=== PATIENT | female | born 1975 | race Caucasian/White ===

== ENCOUNTER → 2022-09-15 13:48 | Outpatient (CLI) | payer OTHER, SELFPAY ==
--- NOTE | ~2022-09-15 | MM_ITS ---
EXAMINATION: MM screening alberto BI w [facility] HISTORY: Screening mammogram TECHNIQUE: Craniocaudal and mediolateral oblique 3-D tomosynthesis images were obtained and synthetic 2-D images were generated. CAD analysis was submitted and interpreted. COMPARISON: 02/05/2018 diagnostic left mammogram and left complete breast ultrasound 02/01/2018, 06/27/2014 bilateral screening mammogram examinations BREAST PARENCHYMAL COMPOSITION: The breasts are heterogeneously dense, which may obscure small masses . FINDINGS: There is no evidence of suspicious mass, calcification, or architectural distortion to sugg est malignancy in either breast. There has been no suspicious interval change. IMPRESSION: 1. No mammographic evidence of malignancy. 2. Recommend routine screening mammography in one year. BI-RADS Category 1: Negative Reviewed, dictated and finalized at location A. ER TENDER
--- NOTE | ~2022-09-15 | US_ITS ---
EXAMINATION: US transvaginal DATE: 09/15/2022 14:42 INDICATION: Uterine hypertrophy Comparison:No prior studies for comparison. TECHNIQUE: Multiple transabdominal and endovaginal sonographic images of the pelvis performed. FINDINGS: The uterus measures 9.8 x 4.5 x 7 cm. There is duplication of the endometrium which may rep resent a bicornuate or septate uterus. The endometrium on the right measures 11 mm and on the left me asures 10 mm. There are small uterine fibroids inferiorly measuring 1.4 cm and anterior to the right measuring 2.1 cm. The right ovary is not visualized. The left ovary is unremarkable measuring 3.6 x 2 x 2.9 cm. There is no free fluid in the pelvis. There are no abnormal masses seen on either side. IMPRESSION: 1. 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 2: Small uterine fibroids, largest located anteriorly to the right measuring 2.1 cm. Reviewed, dictated and finalized at location B. ICAL ROLL OPERATOR IMPRESSION: 1. Duplication of the endometrium which may be secondary to bicornuate or septa te uterus. 2: Small uterine fibroids, largest located anteriorly to the right measuring 2. 1 cm.
== END ==
PROVIDERS: PCP Family Medicine; Visit Provider Nurse Practitioner
DX: Z12.31 Encounter for screening mammogram for malignant neoplasm of breast (principal); N85.2 Hypertrophy of uterus; R93.5 Abnormal findings on diagnostic imaging of other abdominal regions, including retroperitoneum; D25.9 Leiomyoma of uterus, unspecified
CPT/HCPCS: 76830; 77063; 77067

== ENCOUNTER 2023-11-02 01:50 | Day surgery (SDC) | payer OTHER, SELFPAY ==
[2023-10-22 11:02] VITALS: BMI 24.0
--- NOTE | 2023-10-22 11:05 | PC.NURSE ---
Report to the Outpatient Waiting Room, entrance under the green pavilion located off [facility], at time 0730 on date 11/02/23. Planned Procedure Time: 0930. Time changes happen often and if your time is changed the preop area will call you the afternoon before. - You and your visitor will be asked to self-screen and do not enter if you have any COVID symptoms. - A mask is optional within the hospital at this time. Patients may have clear liquids (water, carbonated beverages, clear teas, apple juice) until 3 hours prior to surgery with a maximum of 20 ounces. - No food from midnight until time of surgery Take the following medications with a SIP of water the morning of surgery: NONE DO NOT STOP ANY OF YOUR OTHER PRESCRIPTION MEDICATIONS PRIOR TO SURGERY ?EXCEPT THE FOLLOWING Medications to discontinue per physician: N/A Date to take last dose: N/A Please no make-up, nail uzbek, hairspray, perfume, deodorant, or body powder the day of surgery. No jewelry (including any body piercings) or valuables the day of surgery, leave them at home. Please take a shower or bath the night before, or the morning of, surgery with an antibacterial soap. Wear comfortable, loose fitting clothing. - Jewelry must be removed prior to entering the operating room. Rings and piercings that are not removed may be cut off. - The hospital will not accept responsibility for valuables. - Please leave all valuables, including medications, at home the day of surgery. If you are going home after surgery, a licensed electric train driver must drive you home. - NO public transportation without another adult if you receive anesthesia. - We recommend that an adult stay with you for 24 hours following discharge. - We also recommend that you do not drive, make important decision, drink alcoholic beverages, or take any drugs that were not prescribed by your health care provider for at least 24 hours after your discharge time. Follow any additional instructions given to you from your surgeon. If you or anyone in your household have experienced Covid symptoms in the past week, please notify your surgeon or the nurse liaison at the phone number below for possible testing. Telephone instructions given to DELORIS LONG and asked if any additional questions and then verbalized understanding. Patient advised to call surgeon office or pre surgery nurse liaison [phone] if any additional questions.
--- NOTE | 2023-11-02 07:03 | P.HP_ITS ---
History of Present Illness History of Present Illness Consent: Risks, benefits, and alternatives have been discussed and questions answered. Patient agrees to proceed with procedure. Chief complaint: Menorrhagia Narrative: Jana Pillai is a 47 year old female with the onset of heavy cycles. 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 It was recommended to undergo D&C hysteroscopy. Risks of infection, bleeding, perforation it possible pathology are discussed. Patient voices understanding and agrees to proceed. Review of Systems Review of Systems: not repeated day of surgery; patient states no changes in status [facility] Past Medical History Medical History (Updated 11/02/23 @ 07:06 by Casie Silverman MD) Migraines (normal spontaneous vaginal delivery) Social History Social History Smoking status: Never smoker Alcohol intake: never Substance use: never Substance use type: does not use Living arrangements: with family Spiritual care concerns: No Meds Home Medications and Allergies Home Medications Medication Instructions Recorded Confirmed Type rimegepant 75 mg disintegrating 75 mg PO ONCE PRN Migraine Headache 10/22/23 10/22/23 History tablet (Nurtec ODT) Allergies Allergy/AdvReac Type Severity Reaction Status Date / Time amoxicillin Allergy Unknown RASH/HIVES Unverified 10/22/23 11:02 Exam Const: General: healthy appearing and alert Orientation/consciousness: patient oriented x3 Resp: Effort & Inspection: normal respiratory effort GI: GI Palp: Yes Soft to palpation, No Tenderness to palpation present (GI) and No Palpable mass present : External Female Exam: normal external appearance Speculum Exam - Vagina: normal appearance of the vagina and normal vaginal discharge Speculum Exam - Cervix: normal appearance of the cervix Bimanual exam- vagina & uterus: uterine size normal and consistency normal Bimanual Exam- Adnexa, other: normal adnexae and No adnexal tenderness Neuro: General: patient oriented x3 Assessment and Plan Assessment and plan (1) Menorrhagia: Code(s): N92.0 - Excessive and frequent menstruation with regular cycle Status: Acute Assessment and Plan: plan to proceed with D&C hysteroscopy
--- NOTE | 2023-11-02 07:03 | WPDHPUPDATE1 ---
History and Physical Update Update Date/Time: 11/02/23 07:03 History and Physical has been reviewed, including an updated exam of the patient. There are NO changes in the patient's condition. Risks, benefits, and alternatives have been discussed and questions answered. Patient agrees to proceed with procedure.
[2023-11-02 07:45] VITALS: BP 125/88; PULSE 76; RESP 18; TEMP 36.7; O2SAT 99
--- NOTE | 2023-11-02 08:12 | P.PNAN_ITS ---
Anes - Initial Pre Proc Eval Procedure: Operation Date: 11/02/23 09:30 Proposed Procedures p Hysteroscopy Dilation and Curettage - Casie Silverman MD Date/Time: 11/02/23 08:12 Surgeon: Casie Silverman MD Pre Op Diagnosis: Menorrhagia Patient Data Age: 47 Gender: F Height: 1.63 m Weight: 63.5 kg Allergies Allergy/AdvReac Type Severity Reaction Status Date / Time amoxicillin Allergy Unknown RASH/HIVES Verified 11/02/23 08:26 Home Medications Medication Instructions Recorded Confirmed Type rimegepant 75 mg disintegrating 75 mg PO ONCE PRN Migraine Headache 10/22/23 11/02/23 History tablet (Nurtec ODT) Patient hx anesthesia problems: other (Pt reports PONV w GA in the past. ) Family hx anesthesia problems: none Results Review: All pre-operative results and documents have been reviewed as part of the pre- operative evaluation. [facility] Past Medical History Medical History (Updated 11/02/23 @ 07:06 by Casie Silverman MD) Migraines (normal spontaneous vaginal delivery) Social History Social History Smoking status: Never smoker Alcohol intake: never Substance use: never Substance use type: does not use Living arrangements: with family Spiritual care concerns: No Anes - Eval Final PreProcedure Day of Procedure 11/02/23 08:12 Patient weight: normal Heart: regular rate and rhythm Lungs: clear to auscultation Airway: Mallampati scale class 1 Neurological: alert and oriented Last oral intake: >/= 8 hours ASA classification: I Emergent: no Anesthetic plan: proceed Anesthesia type and monitoring: general GIVS and standard monitoring Results Review: All pre-operative results and documents have been reviewed as part of the pre- operative evaluation. Informed Consent: The patient's anesthetic plan and its attendant risks and benefits were discussed with the patient/family/POA. Questions were solicited and answers provided to the satisfaction of the patient/family/POA.
[2023-11-02] MEDS: LACTATED RINGERS 1,000 ML 30 ML IV CONT (08:37)
[2023-11-02] MEDS: ACETAMINOPHEN 500 MG TABLET 1000 MG PO (08:38)
--- NOTE | 2023-11-02 10:02 | W.PM.PROC2 ---
Procedure Note - Detailed Date of Procedure 11/02/23 Pre-op Diagnosis Menorrhagia Post-op Diagnosis Same Procedure Performed D&C hysteroscopy with polyp resection Surgeon Casie Silverman MD Anesthesia MAC Findings The uterus sounds to 9cm and has a normal contour. There was no evidence of bicornuate or septum uterus. There is a small polyp in the right cornua and otherwise the endometrium appears generally thickened. Description of Procedure The patient is taken to the operating room and placed under anesthesia in the dorsal lithotomy position. She was prepped and draped in the usual sterile fashion. [place] speculum was placed in the vagina and the cervix grasped on the anterior lip with a tenaculum. The uterus is sounded to 9cm. The cervix is somewhat stenotic therefore dilated with a 4/5 Hegar. The diagnostic hysteroscope was then able to be placed and the above-stated findings were noted. The small Aveeta resection device is placed and the polyp removed in its entirety. The hysteroscope was then removed and the sharp OO curette is used to curette the endometrium until a good uterine cry was noted in all areas. All instruments were then removed. Patient was awakened from anesthesia and taken to recovery in stable condition. Sponge, needle, and instrument counts are correct per the OR staff. Estimated Blood Loss 5 Drains No Packing No Pathology Yes ( Endometrial shavings and curettings) Complications No immediate complications Condition Stable Disposition PACU
[2023-11-02 10:04] VITALS: BP 95/71; PULSE 66; RESP 12; O2SAT 96
[2023-11-02 10:35] VITALS: BP 100/72; PULSE 59; O2SAT 100
[2023-11-02 11:05] VITALS: BP 109/69; PULSE 67
== END 2023-11-02 11:31 | disposition home or self-care (01) ==
PROVIDERS: PCP Internal Medicine; Visit Provider Obstetrics & Gynecology Gynecology
PROC: 0U5B8ZZ Destruction of Endometrium, Via Natural or Artificial Opening Endoscopic (ICD-10-PCS; CPT 58563; principal; 2023-11-02 09:30)
DX: N92.0 Excessive and frequent menstruation with regular cycle (principal); N84.0 Polyp of corpus uteri
CPT/HCPCS: 58558; 88305; A9270; J2250; J2405; J2704; J3010; J7120

== ENCOUNTER 2025-02-16 16:07 | Outpatient (CLI) | payer OTHER, SELFPAY ==
--- NOTE | ~2025-02-16 | MM_ITS ---
EXAMINATION: MM screening alberto BI w [facility] HISTORY: Screening TECHNIQUE: Craniocaudal and mediolateral oblique 3-D tomosynthesis images were obtained and synthetic 2-D images were generated. CAD analysis was submitted and interpreted. COMPARISON: Comparison to multiple prior studies sequentially, with oldest reviewed study dated 02/01. BREAST PARENCHYMAL COMPOSITION: Dense: The breasts are heterogeneously dense, which may obscure small masses FINDINGS: There is no evidence of suspicious mass, calcification, or architectural distortion to sugg est malignancy in either breast. There has been no suspicious interval change. IMPRESSION: 1. No mammographic evidence of malignancy. 2. Recommend routine screening mammography in one year. BI-RADS Category 1: Negative Reviewed, dictated and finalized at location B.
--- OUTSIDE RECORDS SUMMARY | 2025-02-16 16:11 | XMS_ITS | Clinical Summary ---
Author Organization [facility] Address [address] [place] [address] Care Team Providers Care Rim Fire Priming Operator Name Role Phone Jeff Christianson MD Primary Care Provider [phone] Allergies Active Allergy Reactions Criticality Noted Date Comments Amoxicillin Hives 08/01/2022 Medications rimegepant (NURTEC) 75 MG disintegrating tabletIndications:M igraine without aura, not intractable, without status migrainosus Take 1 tablet (75 mg total) by mouth as needed. Max of 1 tablet (75 mg) in 24 hours. 16 tablet 11 4 Active traMADol (ULTRAM) 50 MG tabletIndications:A cute Pain < 7 Day Supply Take 1 tablet (50 mg total) by mouth every 6 (six) hours as needed for Pain. Indications : Acute Pain < 7 Day Supply 20 tablet 5 Active cyclobenzaprine (FLEXERIL) 5 MG tabletIndications:A cute right-sided low back pain without sciatica Take 1 tablet (5 mg total) by mouth nightly. 15 tablet 5 Active ketorolac (TORADOL) 10 MG tabletIndications:A cute right-sided low back pain without sciatica Take 1 tablet (10 mg total) by mouth every 6 (six) hours as needed for Pain. Take with food; no ibuprofen. 20 tablet 5 02/16/20 Hospital, Clinic, or Other Facility Administered Medication Ordered Dose Route Frequency Start Date End Date Status ketorolac (TORADOL) injection 60 mgIndications:Acute right-sided low back pain without sciatica 60 mg IM Once 02/10/2025 02/10/2025 Ended methylPREDNISolone acetate (DEPO-Medrol) injection 40 mgIndications:Acute right-sided low back pain without sciatica 40 mg IM Once 02/10/2025 02/10/2025 Ended Active Problems No known active problems Encounters Date Type Department Care Team Description 02/10/2025 7:00 AM CDT [facility] [address] [place] [address] Jeff Christianson MD Follow Up; Back Pain (Sx for 3 weeks. Cause is unknown. ) 02/10/2025 Results Follow-Up [facility] [place] [address] [place] [address] Jeff Christianson MD XR LUMB SPINE 3V 02/10/2025 MyChart Message Enc [facility] [place] [address] [place] [address] Jeff Christianson MD Which is which 02/10/2025 Travel from Last 3 Months Immunizations Immunization Administration Dates Next Due Influenza Adult (Generic) 03/17/2024 MODERNA COVID-19 (DYE REEL OPERATOR ENRICO DANISHA), MRNA, LNP-S, PF, 50 MCG/ 0.25 ML DOSE 06/11/2021 PFIZER COVID-19 (12+) MRNA, LNP-S, PF, MAKENAN-SUCROSE, 30 MCG/0.3 ML (COMIRNATY) 03/17/2024 Tdap (Adacel) 08/26/2024 Tdap (Generic) 04/10/2014 Family History Medical History Relation Comments Heart Disease Father Hypertension Father Hypertension Mother Cancer Paternal Grandfather Cancer Paternal Grandmother Prostate Cancer Paternal Uncle Relation Status Comments Father Mother Paternal Grandfather Paternal Grandmother Paternal Uncle Social History Tobacco Use Types Packs/Day Years Used Date Smoking Tobacco: Never Smokeless Tobacco: Never Tobacco Cessation:Counseling Given: Yes Comments:Counseled by Dr Christianson. Alcohol Use Standard Drinks/Week Comments Never 0 (1 standard drink = 0.6 oz pur e alcohol) PHQ-2 Answer Date Recorded Patient Health Questionnaire-2 Score 0 08/26/2024 Comments No Sex and Gender Information Value Date Recorded Sex Assigned at Female 02/10/2025 7:08 AM CDT Legal Sex Female 5:26 PM CDT Gender Identity Female 02/10/2025 7:08 AM CDT Sexual Orientation Straight 02/10/2025 7: 08 AM CDT Last Filed Vital Signs Vital Sign Reading Time Taken Comments Blood Pressure 136/84 02/10/2025 7:08 AM CDT Pulse 74 02/10/2025 7:08 AM CDT Temperature 37 C (98.6 F) 02/10/2025 7:08 AM CDT Respiratory Rate 18 02/10/2025 7:08 AM CDT Oxygen Saturation 100% 02/10/2025 7:08 AM CDT Inhaled Oxygen Concentration - - Weight 61.2 kg (135 lb) 02/10/2025 7:08 AM CDT Height 162.6 cm (5' 4) 02/10/2025 7:08 AM CDT Body Mass Index 23.17 02/10/2025 7:08 AM CDT Plan of Treatment Upcoming Encounters Date Type Department Care Team (Late st Contact Info) Description 03/10/2025 8:20 AM CDT Office Visit [facility] - [place] [address] [address] [place] [address] Jeff Christianson MD [address] [place] [address] [address] [place] [address] 03/13/2025 3:40 PM CDT Office Visit [facility] - [facility] 3 [facility], [address] [place] [id number] Ken Mendoza MD 3 [place] [address] Health Maintenance Due Date Last Done Comments Hepatitis B Vaccines (1 of 3 - 19+ 3-dose series) 1996 Cervical Cancer Screening Pap with HPV Testing (Age 30 to 64) Every 5 Years 12/23/2007 Cervical Cancer Screening Pap Smear (Age 30 to 64) Every 3 Years 09/06/2024 09/06/2021, 09/06/2021 Cervical Cancer Screening with HPV 09/06/2024 Mammogram Screening 09/15/2024 09/15/2022 Annual Physical 08/26/2025 08/26/2024, 08/01/2022 Colorectal Cancer Screening FIT-DNA (3 Years) 08/27/2026 08/27/2023, 08/27/2023 DTaP, Tdap and Td Vaccines (3 - Td or Tdap) 08/26/2034 08/26/2024, 04/10/2014 Hepatitis C Completed 08/28/2023 COVID-19 Vaccine Completed 03/17/2024, , 04/17/2023, Additional history exists PHQ-2 (Physician [place]) Completed 08/26/2024 Meningococcal B Vaccine Aged Out No l onger eligible based on patient's age to complete this topic Meningococcal Vaccine Aged Out No althea flori eligible based on patient's age to complete this topic Pneumococcal Vaccine: Pediatrics (0 to 5 Years) and At-Risk Patients (6 to 49 Years) Aged Out No longer eligible based on patient's age to complete this topic RSV Immunizations Under 20 Months Aged Out No longer eligible based on patient's age to complete this topic Procedures Procedure Name Priority Date/Time Associated Diagnosis Comments XR LUMB SPINE 3V Routine 02/10/2025 8:15 AM CDT Acute right-sided low back pain without sciatica HEPATITIS C ANTIBODY Routine 08/28/2023 7:50 AM BUCKLE ATTACHING MACHINE OPERATOR Annual physical exam Establishing care with new doctor, encounter for General medical exam Encounter for hepatitis C screening test for low risk patient COLOGUARD (EXACT SCIENCE) Routine 08/27/2023 1:30 PM BUCKLE ATTACHING MACHINE OPERATOR Screen for colon cancer MAMMOGRAM GENERIC (SCAN ORDER) 09/15/2022 OUTSIDE CYTOPATH CERV/VAG INTERPRET (PAP) (SCAN ORDER) 09/06/2021 from Last 3 Months or Most Recently Relevant to Health Maintenance Results * XR LUMB SPINE 3V (02/10/2025 8:15 AM CDT) Anatomical Region Laterality Modality Spine Radiographic Desiree ging 02/10/2025 2:45 PM CDT Impressions 02/10/2025 3:22 PM CDT IMPRESSION: No acute osseous abnormality. The attending radiologist has reviewed the image(s) and agrees with the content of this report. Ordered By: JEFF CHRISTIANSON Interpreted By: Emanuel Mendenhall MD, 02/10/2025 2:45 PM Narrative 02/10/2025 3:22 PM CDT [facility] [place] [address] Examination: XR LUMB SPINE 3V Exam time: 02/10/2025 7:59 AM Clinical history: Severe back pain for 3 weeks Comparison: X-ray lumbar spine 02/27/2017 Technique: AP, lateral, magnified L5-S1 views of the lumbar spine Findings: Very minor levo curvature of the lumbar spine which could be secondary due to patient positioning when compared to radiograph 02/27/2017. There is normal lordosis of the lumbar spine. The vertebral body heights are well maintained and within normal limits. The vertebral disc heights are well- maintained and within normal limits. Minor facet arthropathy seen at the lower lumbar levels. No destructive osseous lesion. The SI joints bilaterally are sharply defined unremarkable. Procedure Note Kenton Saravia MD - 02/10/2025 [facility] [place] [id number] Examination: XR LUMB SPINE 3V Exam time: 02/10/2025 7:59 AM Clinical history: Severe back pain for 3 weeks Comparison: X-ray lumbar spine 02/27/2017 Technique: AP, lateral, magnified L5-S1 views of the lumbar spine Findings: Very minor levo curvature of the lumbar spine which could be secondary dueto patient positioning when compared to radiograph 02/27/2017. There is normal lordosis of the lumbar spine. The vertebral body heightsare well maintained and within normal limits. The vertebral disc heightsare well- maintained and within normal limits. Minor facet arthropathy seenat the lower lumbar levels. No destructive osseous lesion. The SI joints bilaterally are sharplydefined unremarkable. IMPRESSION: No acute osseous abnormality. The attending radiologist has reviewed the image(s) and agrees with thecontent of this report. Ordered By: JEFF CHRISTIANSON Interpreted By: Emanuel Mendenhall MD, 02/10/2025 2:45 PM Jeff Christianson MD GENERAL IMAGING Final Result * HEPATITIS C ANTIBODY (08/28/2023 7:50 AM BUCKLE ATTACHING MACHINE OPERATOR) HEPATITIS C AB NON-REACTI VE NON-REACT JOSE CARLOS 08/28/2023 7:38 PM BUCKLE ATTACHING MACHINE OPERATOR [facility] Comment: ANTIBODIES TO HCV NOT DETECTED. DOES NOT EXCLUDE THE POSSIBILITY OF EXPOSURE TO HCV. 08/28/2023 7:50 AM BUCKLE ATTACHING MACHINE OPERATOR Jeff Christianson MD LABORATORY Final Result [facility] [address] [place] [address], [id number] * COLOGUARD (EXACT SCIENCE) (08/27/2023 1:30 PM BUCKLE ATTACHING MACHINE OPERATOR) COLOGUARD RESULT Negative Negative [facility] (CLIA #:[id number]) Comment: NEGATIVE TEST RESULT. A negative Cologuard result indicates a low likelihood that a colorectal cancer (CRC) or advanced adenoma (adenomatous polyps with more advanced pre-malignant features) is present. The chance that a person with a negative Cologuard test has a colorectal cancer is less than 1 in 1500 (negative predictive value >99.9%) or has an advanced adenoma is less than 5.3% (negative predictive value 94.7%). These data are based on a prospective cross-sectional study of 10,000 individuals at average risk for colorectal cancer who were screened with both Cologuard and colonoscopy. (Nidhi Laws al, N Engl J Med 2014;370(14):3733-1280) The normal value (reference range) for this assay is negative. COLOGUARD RE-SCREENING RECOMMENDATION: Periodic colorectal cancer screening is an important part of preventive healthcare for asymptomatic individuals at average risk for colorectal cancer. Following a negative Cologuard result, the Australian Cancer Society and U.S. Multi-Society Task Force screening guidelines recommend a Cologuard re-screening interval of 3 years. References: [place] Cancer Society Guideline for Colorectal Cancer Screening: https://www.cancer.org/cancer/whfky-fkmuud-oprnwa/bkatjkbye-mlinljnqv-czkjghb/ac s-rec ommendations.html.; Jass DK, Monster CR, Jose GillisK, Colorectal Cancer Screening: Recommendations for Physicians and Patients from the U.S. Multi-Society Task Force on Colorectal Cancer Screening , Am J Gastroenterology 2017; 112:4897-0517. TEST DESCRIPTION: Composite algorithmic analysis of stool DNA-biomarkers with hemoglobin immunoassay. Quantitative values of individual biomarkers are not reportable and are not associated with individual biomarker result reference ranges. Cologuard is intended for colorectal cancer screening of adults of either sex, 45 years or older, who are at average-risk for colorectal cancer (CRC). Cologuard has been approved for use by the U.S. FDA. The performance of Cologuard was established in a cross sectional study of average-risk adults aged 50-84. Cologuard performance in patients ages 45 to 49 years was estimated by sub-group analysis of near-age groups. Colonoscopies performed for a positive result may find as the most clinically significant lesion: colorectal cancer [4.0%], advanced adenoma (including sessile serrated polyps greater than or equal to 1cm diameter) [20%] or non- advanced adenoma [31%]; or no colorectal neoplasia [45%]. These estimates are derived from a prospective cross-sectional screening study of 10,000 individuals at average risk for colorectal cancer who were screened with both Cologuard and colonoscopy. (Nidhi Laws al, N Engl J Med 2014;370(14):1590-7279.) Cologuard may produce a false negative or false positive result (no colorectal cancer or precancerous polyp present at colonoscopy follow up). A negative Cologuard test result does not guarantee the absence of CRC or advanced adenoma (pre-cancer). The current Cologuard screening interval is every 3 years. (Australian Cancer Society and U.S. Multi-Society Task Force). Cologuard performance data in a 10,000 patient pivotal study using colonoscopy as the reference method can be accessed at the following location: www.[employer].Focus Media/results. Additional description of the Cologuard test process, warnings and precautions can be found at www.cologuard.com. STOOL STOOL SPECIMEN / Unknown 08/27/2023 1:30 PM BUCKLE ATTACHING MACHINE OPERATOR 08/28/2023 12:25 PM BUCKLE ATTACHING MACHINE OPERATOR Jeff Christianson MD BODY FLUIDS AND STOOLS ORDERABLE S Final Result [facility]) [address] [place] [address], [place] (CLIA #:[id number]) [address] [place] [address] [place] [address] * MAMMOGRAM GENERIC (09/15/2022) Anatomical Region Laterality Modality Other 09/15/2022 [facility] Scanned SCANNING Final Resu lt * PAP SMEAR (09/06/2021) 09/06/2021 [facility] Scanned SCANNING Final Resu lt from Last 3 Months or Most Recently Relevant to Health Maintenance Insurance Care Teams Rim Fire Priming Operator Relationship Specialty Start Date End Date Jeff Christianson MD [address] [address] PCP - General INTERNAL MEDICINE 12/22/22
--- OUTSIDE RECORDS SUMMARY | 2025-02-16 16:11 | XMS_ITS | Encounter Summary ---
Author Organization [facility] Address [address] [place] [address] Care Team Providers Care Pipe Tester Name Role Phone Jeff Christianson MD Primary Care Provider [phone] Encounter Details Date Type Department Care Team (Late Contact Info) Description 09/01/2024 MyChart Message Enc [facility] Medical [facility] Care - [place] [address] [address] [place] [address] [place] [address] [place] [address] [address] [place] [address] Bone spur Social History Tobacco Use Types Packs/Day Years Used Date Smoking Tobacco: Never Smokeless Tobacco: Never Comments:Counseled by Dr Elisha katz. Alcohol Use Standard Drinks/Week Comments Never 0 [...] Orientation Straight 02/10/2025 7: 08 AM CDT documented as of this encounter Plan of Treatment Upcoming Encounters Date Type Department Care Team (Late st Contact Info) Description 03/10/2025 8:20 AM CDT Office Visit [facility] Medical [facility] - [place] [address] [address] [place] [address] Jeff Christianson MD [address] [place] [address] [address] [place] [address] 03/13/2025 3:40 PM CDT Office Visit [facility] Medical Group Multispecialty Care - [facility] [address] [facility], [address] [place] [address] Ken Mendoza MD 3 [place] [address] documented as of this encounter Visit Diagnoses Not on filedocumented in this encounter Additional Health Concerns Assessment Noted Time PHQ-9 Depression Total Score: 1 08/21/19 24 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
--- OUTSIDE RECORDS SUMMARY | 2025-02-16 16:11 | XMS_ITS | Encounter Summary ---
Author Organization [facility] Address [address] [place] [address] Care Team Providers Care Flamer After Lasting Name Role Phone [facility] Hardin MD [facility] Jeff Christianson MD Primary Care Provider [phone] Encounter Details Date Type Department Care Team (Late st Contact Info) Description 09/17/2022 [facility] [place] [address] [place] [address] Nancy Hardin MD Mammogram results Social History Tobacco Use Types Packs/Day Years Used Date Smoking Tobacco: Never Smokeless Tobacco: Never Alcohol Use Standard Drinks/Week Comments Never 0 (1 standard drink = 0.6 oz pur e alcohol) PHQ-2 Answer Date Recorded Patient Health Questionnaire-2 Score 0 08/01/2022 Comments No Sex and Gender Information Value Date Recorded Sex Assigned at Female 02/10/2025 7:08 AM CDT Legal Sex Female 5:26 PM CDT Gender Identity Female 02/10/2025 7:08 AM CDT Sexual Orientation Straight 02/10/2025 7 :08 AM CDT documented as of this encounter Plan of Treatment Upcoming Encounters Date Type Department Care Team (Late st Contact Info) Description 03/10/2025 8:20 AM CDT [facility] [place] [address] [address] [place] [address] Jeff Christianson MD [address] [place] [address] 03/13/2025 3:40 PM CDT Office Visit [facility] Medical [facility] Mult[facility] - [facility] [address] [facility], [address] [place] [id number] Ken Mendoza MD 3 [place] [address] documented as of this encounter Visit Diagnoses Not on filedocumented in this encounter Care Teams Flamer After Lasting Relationship Specialty Start Date End Date Nancy Hardin MD PCP - General FAMILY PRACTICE 08/01/22 12/21/22 Jeff Christianson MD [address] [address] PCP - General INTERNAL MEDICINE 12/22/22 documented as of this encounter
--- OUTSIDE RECORDS SUMMARY | 2025-02-16 16:11 | XMS_ITS | Encounter Summary ---
Author Organization [facility] Address [address] [place] [address] Care Team Providers Care Mat Weaver Name Role Phone Jeff Christianson MD Primary Care Provider Encounter Details Date Type Department Care Team (Latest Contact Info) Description 02/10/2025 [facility] [place] [address] [place] [address] Jeff Christianson MD [address] [place] [address] XR LUMB SPINE 3V Social History Tobacco Use Types Packs/Day Years [...] Description 03/10/2025 8:20 AM CDT [facility] [place] [address] [address] [place] [address] Jeff Christianson MD [facility] [address] [place] [address] 03/13/2025 3:40 PM CDT Office Visit [facility] Medical Group Multispecialty Care - [facility] 3 [facility], [address] [place] [address] Ken Mendoza MD 3 [place] [address] documented as of this encounter Visit Diagnoses Not on filedocumented in this encounter Additional Health Concerns Assessment Noted Time PHQ-9 Depression Total Score: 1 08/21/19 24 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
--- OUTSIDE RECORDS SUMMARY | 2025-02-16 16:11 | XMS_ITS | Encounter Summary ---
Author Organization [facility] Address [address] [place] [address] Care Team Providers Care Child Care Specialist Name Role Phone Jeff Christianson MD Primary Care Provider [phone] Encounter Details Date Type Department Care Team (Late Contact Info) Description 02/10/2025 MyChart Message Enc [facility] Medical [facility] Multispecialty [facility] - [place] [address] [address] [place] [address] Jeff Christianson MD [address] [place] [address] [address] [place] [address] Which is which Social History Tobacco Use Types Packs/Day Years [...] Description 03/10/2025 8:20 AM CDT Office Visit [facility] Medical [facility] Multispecialty Care - [address] [place] [address] Jeff Christianson MD [address] [place] [address] [address] [place] [address] 03/13/2025 3:40 PM CDT Office Visit [facility] Medical Group Mult[facility]pecialty Care - [facility] 3 [facility], [address] [place] [address] Ken Mendoza MD 3 [place] [address] documented as of this encounter Visit Diagnoses Not on filedocumented in this encounter Additional Health Concerns Assessment Noted Time PHQ-9 Depression Total Score: 1 08/21/19 24 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
--- OUTSIDE RECORDS SUMMARY | 2025-02-16 16:11 | XMS_ITS | Clinical Summary ---
Author Organization [facility] Address [address] [place] [address] Care Team Providers Care Certified Meeting Professional Name Role Phone Lenin Mack DO Primary Care Provider Source Comments [facility],non-owned Affiliates and Associated Physician Practices is amultiple site organization consisting of ambulatory clinics and hospital sitesin [place], [place], [place] and [place]. This disclosure is being madepursuant to the Care Everywhere program and may not contain all information available regarding this patient. Last updated 18.[facility] Allergies Active Allergy Reactions Criticality Noted Date Comments Amoxicillin Urticaria Medium 02/14/2018 Medications * Be aware that medications may not be up to date on this document. Alwaysverify current medications with the patient. benzonatate (TESSALON) 200 MG capsuleIndicatio ns:Upper respiratory tract infection, unspecified type Take 1 capsule by mouth 3 times daily as needed for Cough 30 capsule 02/14/2018 Active Family History Medical History Relation Name Comments Hyperlipidemia Father Hypertension Father Hyperlipidemia Mother Hypertension Mother Relation Name Status Comments Father Mother Social History Tobacco Use Types Packs/Day Years Used Date Smoking Tobacco: Never Smokeless Tobacco: Never Comments No Sex and Gender Information Value Date Recorded Sex Assigned at Not on file Legal Sex Female 7:28 PM CDT Gender Identity Not on file Sexual Orientation Not on file Last Filed Vital Signs Vital Sign Reading Time Taken Comments Blood Pressure 114/78 02/14/2018 10:20 AM CDT Pulse 83 02/14/2018 10:20 AM CDT Temperature 37.2 C (98.9 F) 02/14/2018 10:20 AM CDT Respiratory Rate 16 02/14/2018 10:20 AM CDT Oxygen Saturation 98% 02/14/2018 10:20 AM CDT Inhaled Oxygen Concentration - - Weight 63.5 kg (140 lb) 02/14/2018 10:20 AM CDT Height 162.6 cm (5' 4) 02/14/2018 10:20 AM CDT Body Mass Index 24.03 02/14/2018 10:20 AM CDT Plan of Treatment Health Maintenance Due Date Last Done Comments COLOGUARD (AGES 45-75) - COL ON CA SCREENING 1977 COLON MONITORING 1977 COLONOSCOPY - COLON CA SCREENING 1977 CT COLONOGRAPHY - COLON CA SCREENING 1977 Colorectal Cancer Screening 1977 FIT - COLON CA SCREENING 1977 FLEX SIG - COLON CA SCREENING 1977 LIPID TESTING 1977 MAMMOGRAM 1977 HIV SCREENING 1992 HEPATITIS C SCREENING 12/18/1995 DTAP/TDAP/TD VACCINES (1 - Tdap) 1996 HEPATITIS B VACCINE (1 of 3 - 19+ 3-dose series) 1996 PAP SMEAR 1998 COVID-19 VACCINE (1 - 2023-2 5 season) 2024 DEPRESSION SCREENING 07/20/2024 INFLUENZA VACCINE (#1) 2025 ZOSTER VACCINE (1 of 2) 12/23/2027 HIB VACCINE Aged Out No longer eligi ble based on patient's age to complete this topic HPV VACCINE Aged Out No longer eligi ble based on patient's age to complete this topic MENINGOCOCCAL (Group B) VACC INE SHARED DECISION-MAKING Aged Out No longer eligibl e based on patient's age to complete this topic MENINGOCOCCAL GROUPS A/C/Y/W VACCINE Aged Out No longer eligible b ased on patient's age to complete this topic PNEUMOCOCCAL VACCINE Aged Out No long er eligible based on patient's age to complete this topic Insurance SELF PAY NO INSURANCE Member Subscriber Plan / Payer (Ef fective for All Dates) Name:Ethan Vázquez Member ID:Not on file Relation to Subscriber:Not on file Name:ETHAN VÁZQUEZ Subscriber ID:Not on file Address: [address] [place], [place] [id number] Payer ID:Not on file Group ID:Not on file Type:Self Pay Address: [place], [place] [employer] SELF PAY NO INSURANCE Member Subscriber Plan / Payer (Ef fective for All Dates) Name:Ethan Vázquez Member ID:Not on file Relation to Subscriber:Not on file Name:ETHAN VÁZQUEZ Subscriber ID:Not on file Address: [address] [place] [address] Payer ID:Not on file Group ID:Not on file Type:Self Pay Address: [place], [place] [facility] SELF PAY NO INSURANCE Member Subscriber Plan / Payer (Ef fective for All Dates) Name:Ethan Vázquez Member ID:Not on file Relation to Subscriber:Not on file Name:ETHAN VÁZQUEZ Subscriber ID:Not on file Address: [address] [place] [address] Payer ID:Not on file Group ID:Not on file Type:Self Pay Address: [place], [place] Care Teams Certified Meeting Professional Relationship Specialty Start Date End Date Lenin Mack DO PCP - General Family Medicine 02/14/18
== END 2025-02-16 16:08 | disposition home or self-care (01) ==
PROVIDERS: PCP Internal Medicine; Visit Provider Obstetrics & Gynecology Gynecology
DX: Z12.31 Encounter for screening mammogram for malignant neoplasm of breast (principal)
CPT/HCPCS: 77063; 77067